=== PATIENT | female | born 1965 | race Caucasian/White ===

== ENCOUNTER 2023-09-24 11:29 | Outpatient (CLI) | payer OTHER, SELFPAY ==
--- NOTE | ~2023-09-24 | MMUS_ITS ---
EXAMINATION: MM diagnostic bebo LT w nika, US breast LT limited HISTORY: Left breast cyst. Left breast lump at approximately 3:00. TECHNIQUE: Full field and spot ML, MLO and CC 3-D tomosynthesis images of the left breast were perfor med and synthetic 2-D images were generated. CAD analysis was submitted and interpreted. High resolut ion targeted left breast ultrasound was performed. COMPARISON: January 25, 2023 [facility] bilateral screening mammogram examinati on BREAST PARENCHYMAL COMPOSITION: There are scattered areas of fibroglandular density. FINDINGS: MAMMOGRAPHIC FINDINGS: Scattered benign calcifications. No suspicious mass, architectural distortion, malignant constipation , skin thickening or retraction is detected. ULTRASOUND: No suspicious mass is identified in the upper outer quadrant of the left breast, including the 2:00-3 :00 area where the patient reports a lump. IMPRESSION: 1. No mammographic or sonographic evidence of malignancy 2. Routine annual mammographic screening is recommended BI-RADS Category 2: Benign finding(s). Reviewed, dictated and finalized at location A. IMPRESSION: 1. No mammographic or sonographic evidence of malignancy 2. Routine annual mammographic screening is recommended BI-RADS Category 2: Benign finding(s).
== END 2023-09-24 11:30 | disposition home or self-care (01) ==
PROVIDERS: Visit Provider Nurse Practitioner Family
DX: N60.02 Solitary cyst of left breast (principal)
CPT/HCPCS: 76642; 77061; 77065; G0279

== ENCOUNTER 2023-09-26 15:46 | Outpatient (CLI) | payer OTHER, SELFPAY ==
--- NOTE | ~2023-09-26 | US_ITS ---
EXAMINATION: US soft tissue head and neck DATE: 09/26/2023 16:22 INDICATION: Cervical lymphadenopathy. TECHNIQUE: Multiple grayscale and Doppler ultrasound images of the head and neck were obtained. COMPARISON: None FINDINGS: There is no abnormal mass or lymphadenopathy in the patient's area of concern in left neck. IMPRESSION: 1. No abnormal mass or lymphadenopathy in the patient's area of concern in left neck. Reviewed, dictated and finalized at location E.
== END 2023-09-26 15:47 | disposition home or self-care (01) ==
LOC: ANHIMG 15:52
PROVIDERS: Visit Provider Nurse Practitioner Family
DX: R59.9 Enlarged lymph nodes, unspecified (principal)
CPT/HCPCS: 76536